=== PATIENT | male | born 1940 | race Caucasian/White ===

== ENCOUNTER → 2016-06-13 | Outpatient (CLI) | payer OTHER, MEDICARE ==
[~2016-06-13] MED LIST: ALBUTEROL0.63 MG/3 INH; ASPIRIN325 MG PO; AUGMENTIN125 MG/5 M; AXIRON IM; CENTRUM COMPLE1 EACH PO; CHLOR-TRIMETON4 MG PO; CIPRO500 MG PO; CLARITIN10 M3 PO; COUMADIN ** IA5 MG PO; COUMADIN1 MG; COZAAR100 MG PO; DELTASONE20 MG PO; DIFLUCAN200 MG PO; DITROPAN XL5 MG PO; DOCUSATE SODIU1 EACH PO; GUAIFENESIN400 MG PO; LEVAQUIN 750 M750 MG PO; LEVOTHROID(SYN75 MCG PO; LIORESAL10 MG PO; LIPITOR40 MG PO; LOVENOX40 MG/0.4 SUB-Q; NEXIUM20 MG PO; NORVASC5 MG PO; OXYGEN M-15 INH; PRINIVIL5 MG PO; PROSCAR5 MG PO; PROVENTIL OR V6.7 GM INH; ROBITUSSIN DM U10 ML PO; SYMBICORT 80-10.2 GM INH; TEGRETOL200 MG PO; TERAZOSIN HCL10 MG PO; TESSALON PERLE100 MG PO; TOPROL XL50 MG PO
[2016-06-13 07:01] LABS: ANION GAP 13.3 (10.0-19.0); BLOOD UREA NITROGEN 10 mg/dL (6-24); CALCIUM 7.7 mg/dL (8.5-10.5); CHLORIDE 107 mMol/L (96-110); CO2 27 mMol/L (22-32); CREATININE 0.6 mg/dL (0.6-1.3); ESTIMATED GFR (MDRD EQUATION) > 60; SODIUM 143 mMol/L (135-145)
[2016-06-13 07:02] LABS: POTASSIUM 4.3 mMol/L (3.7-5.1)
[2016-06-13 07:24] LABS: PROTIME 76.3 SECONDS (9.6-11.1)
[2016-06-13 07:25] LABS: INR - (THERAPEUTIC) 6.2 (0.9-1.1)
== END | disposition disaster alternative care site (69) ==
LOC: LJOHN2 06:41
PROVIDERS: Family Medicine
DX: I25.10 Atherosclerotic heart disease of native coronary artery without angina pectoris (principal); I47.1 Supraventricular tachycardia; I50.9 Heart failure, unspecified

== ENCOUNTER → 2016-06-15 | Outpatient (CLI) | payer OTHER, MEDICARE ==
[2016-06-15 10:32] LABS: INR - (THERAPEUTIC) 1.8 (0.9-1.1); PROTIME 20.1 SECONDS (9.6-11.1)
== END | disposition disaster alternative care site (69) ==
LOC: LJOHN2 10:19
PROVIDERS: Family Medicine
DX: I50.9 Heart failure, unspecified (principal)